=== PATIENT | female | born 1990 | race Caucasian/White ===

== ENCOUNTER 2023-05-15 11:27 | Outpatient (CLI) | payer SELFPAY ==
[2023-05-15] VITALS (7 sets, daily range): BP systolic 130–140; BP diastolic 63–77
[~2023-05-15] VITALS: Ht 162.6 cm; Wt 93.8 kg
[2023-05-15] MEDS ORDERED: PRENTAB9 PO (11:50)
[2023-05-15 12:29] LABS: HEMATOCRIT 34.4 % (36.0-47.0); HEMOGLOBIN 11.6 g/dl (12.0-15.5); MEAN CORPUSCULAR HEMOGLOBIN 29.7 pg (27.0-33.0); MEAN CORPUSCULAR HGB CONC 33.7 g/dl (32.0-36.5); MEAN CORPUSCULAR VOLUME 88.2 fl (80.0-96.0); PLATELET COUNT, AUTOMATED 225 10^3/uL (150-450)
[2023-05-15 12:49] LABS: CREATININE,RANDOM URINE < 13.0 MG/DL
[2023-05-15 12:51] LABS: TOTAL PROTEIN,RANDOM URINE < 6.0 MG/DL (0.0-14.0)
[2023-05-15 12:55] LABS: URIC ACID 4.1 MG/DL (3.1-7.8)
[2023-05-15 12:57] LABS: ALT/SGPT 11 U/L (7.0-40); AST/SGOT 8 U/L (<34); BILIRUBIN,TOTAL 0.4 MG/DL (0.3-1.2); GLOMERULAR FILTRATION RATE > 60.0 (>60); LDH LACTATE DEHYDROGENASE 148 U/L (120-246)
== END 2023-05-15 14:00 | disposition home or self-care (01) ==
LOC: M LDO 11:27
PROVIDERS: ATTEND Advanced Practice Midwife
DX: O26.893 Other specified pregnancy related conditions, third trimester (principal); O09.33 Supervision of pregnancy with insufficient antenatal care, third trimester; O09.293 Supervision of pregnancy with other poor reproductive or obstetric history, third trimester; R03.0 Elevated blood-pressure reading, without diagnosis of hypertension; Z3A.35 35 weeks gestation of pregnancy
CPT/HCPCS: 36415; 59025; 82247; 82570; 83615; 84156; 84450; 84460; 84550; 85027; 86850; 86900; 86901; G0463

== ENCOUNTER → 2023-05-20 | Outpatient (REF) | payer SELFPAY ==
[~2023-05-20] MED LIST: PRENTAB9 PO
== END ==
LOC: M SFHCWAGY 13:09
PROVIDERS: ATTEND Obstetrics & Gynecology
DX: Z3A.35 35 weeks gestation of pregnancy (principal)

== ENCOUNTER 2023-06-05 05:11 | Inpatient (IN) | payer SELFPAY ==
[~2023-06-05] VITALS: Ht 162.6 cm; Wt 92.8 kg
[2023-06-05] VITALS (9 sets, daily range): BP systolic 110–143; BP diastolic 55–87; TEMP 97.1; O2SAT 96–98
[2023-06-05 06:18] LABS: HEMATOCRIT 36.6 % (36.0-47.0); HEMOGLOBIN 12.5 g/dl (12.0-15.5); MEAN CORPUSCULAR HEMOGLOBIN 29.8 pg (27.0-33.0); MEAN CORPUSCULAR HGB CONC 34.2 g/dl (32.0-36.5); MEAN CORPUSCULAR VOLUME 87.1 fl (80.0-96.0); PLATELET COUNT, AUTOMATED 224 10^3/uL (150-450); WHITE BLOOD COUNT 11.7 10^3/uL (4.0-10.0)
[2023-06-05] MEDS: ceFAZolin SOD 2 GM in IV 1 EA IV ONE (07:21)
[2023-06-05] MEDS: BICITRA 30ML SOLN UDC PO ONE (07:21)
[2023-06-05] MEDS: LACTATED RINGER'S 1000 ML IV STA (07:22)
[2023-06-05] MEDS: SCOPOLAMINE 1MG TRANSDERMAL PATCH TOP ONE (07:35)
[2023-06-05] MEDS ORDERED: ACETAMINOPHEN 1000MG 100ML IV BAG As Ordered ONE (08:26)
[2023-06-05] MEDS ORDERED: OXYTOCIN 30UNITS IN 0.9% NaCl 500ML IV BAG As Ordered ONE (08:26)
[2023-06-05] MEDS ORDERED: METOCLOPRAMIDE INJ 10MG/2ML VIAL As Ordered ONE (08:26)
[2023-06-05] MEDS ORDERED: MORPHINE PRES-FREE INJ 10 MG/10 ML VIAL As Ordered ONE (08:26)
[2023-06-05] MEDS ORDERED: PHENYLephrine 500MCG 5ML (100MCG/ML) SYRINGE As Ordered ONE (08:26)
[2023-06-05] MEDS ORDERED: KETOROLAC 60MG 2ML VIAL As Ordered ONE (08:26)
[2023-06-05] MEDS ORDERED: ONDANSETRON 4MG 2ML VIAL As Ordered ONE (08:26)
[2023-06-05] MEDS ORDERED: ePHEDrine SULFATE 25 MG/5 ML(5MG/ML) SYRINGE As Ordered ONE (08:26)
[2023-06-05] MEDS ORDERED: SIMETHICONE 80MG CHEW TAB PO PRN (08:45)
[2023-06-05] MEDS ORDERED: ONDANSETRON 4MG TAB PO PRN (08:45)
[2023-06-05] MEDS ORDERED: DOCUSATE SODIUM 100MG CAPSULE PO PRN (08:45)
[2023-06-05] MEDS ORDERED: RHOGAM 300MCG (1500IU) INJ IM SCH (08:45)
[2023-06-05] MEDS ORDERED: PERCOCET 5MG/325MG TAB PO PRN ×2 (08:45)
[2023-06-05] MEDS ORDERED: ONDANSETRON 4MG 2ML VIAL IV PRN (08:55)
[2023-06-05] MEDS ORDERED: oxyCODONE 5MG TAB PO PRN (08:55)
[2023-06-05] MEDS ORDERED: METOCLOPRAMIDE INJ 10MG/2ML VIAL IV PRN (08:55)
[2023-06-05] MEDS ORDERED: diphenhydrAMINE 50MG/ML VIAL IV PRN (08:55)
[2023-06-05] MEDS ORDERED: **NOTE PATIENT COMMENT** MISC XX SCH (08:55)
[2023-06-05] MEDS ORDERED: NALOXONE INJ 0.4MG/1ML VIAL IV PRN ×2 (08:55)
[2023-06-05] MEDS ORDERED: fentaNYL 100 MCG/2 ML INJECTION IV PRN (08:55)
[2023-06-05] MEDS: LR 1,000 ML IV SCH ×2 (08:55→13:42)
[2023-06-05] MEDS: OXYTOCIN DRIP 30 UNITS in IV 1 EA IV SCH (09:07)
[2023-06-05] MEDS: PRENATAL VITAMINS CHEWABLE TABLET PO SCH (10:45)
[2023-06-05 14:07] LABS: HIV 1&2 SCREEN NEGATIVE (NEGATIVE)
[2023-06-05] MEDS: KETOROLAC 30 MG/ML 1ML VIAL IV SCH (15:19)
[2023-06-05] MEDS: SLF 3 ML SYR IV SCH (15:20)
[2023-06-06 02:00] VITALS: BP 109/55; O2SAT 97
[2023-06-06 06:00] VITALS: BP 107/54; O2SAT 99
[2023-06-06 07:48] LABS: MEAN CORPUSCULAR HEMOGLOBIN 29.9 pg (27.0-33.0); MEAN CORPUSCULAR HGB CONC 33.7 g/dl (32.0-36.5); MEAN CORPUSCULAR VOLUME 88.8 fl (80.0-96.0); PLATELET COUNT, AUTOMATED 187 10^3/uL (150-450); RED BLOOD COUNT 3.04 10^6/uL (4.00-5.40); WHITE BLOOD COUNT 12.3 10^3/uL (4.0-10.0)
[2023-06-06 08:02] LABS: HEMOGLOBIN 9.1 g/dl (12.0-15.5)
[2023-06-06 10:00] VITALS: BP 114/59; O2SAT 96
[2023-06-06 14:00] VITALS: BP 125/59; O2SAT 97
[2023-06-06] MEDS ORDERED: IBUP80TA PO (15:47)
[2023-06-06] MEDS: IBUPROFEN 800 MG TAB PO SCH (17:26)
[2023-06-06 18:00] VITALS: BP 120/61; O2SAT 98
[2023-06-07] MEDS ORDERED: MEASLES,MUMPS,RUBELLA VACCINE INJ (MMR-II) SC.IMMUN ONE (09:00)
== END 2023-06-06 18:46 | disposition home or self-care (01) | DRG 540 ==
LOC: M LDI 05:11 → M OBS 10:30
PROVIDERS: ADMIT Specialist; ATTEND Specialist
PROC: 10D00Z1 Extraction of Products of Conception, Low, Open Approach (ICD-10-PCS; principal; 2023-06-05 07:30)
DX: O34.211 Maternal care for low transverse scar from previous cesarean delivery (principal); Z37.0 Single live birth; Z3A.38 38 weeks gestation of pregnancy; O32.1XX0 Maternal care for breech presentation, not applicable or unspecified